=== PATIENT | female | born 1955 | race Caucasian/White ===

== ENCOUNTER → 2017-08-14 | Outpatient (CLI) | payer OTHER ==
--- NOTE | 2017-08-14 14:38 | REP ---
BILATERAL MAMMOGRAM: Bilateral mammography is performed in the MLO and CC projections and compared to prior studies most recent of which is 11/22/2011. Moderate fibroglandular tissue is seen bilaterally. There is a questionable 5 mm nodule on the right MLO view superiorly. I see no other evidence of mass. No clustered microcalcifications are seen. IMPRESSION: ACR 0 incomplete. Possible 5 mm nodule upper right breast only seen on the MLO view. It is not seen on the CC or ML views. Recommend spot compression view right breast in the MLO projection as well as an axillary CC view of the right breast. Further views and ultrasound may also be necessary. BI-RADS/ACR category 0 mammogram, incomplete. Additional imaging and/or prior images are needed before a final assessment can be assigned. This mammogram was interpreted with the aid of an FDA-approved computer-aided detection system. The patient states that she/he has not had a clinical breast exam in over a year. The patient letter being requested is M0. Signed by Christiano Roberson MD 08/14/2017 05:06 P
== END ==
LOC: M RAD 12:38
PROVIDERS: ATTEND Family Medicine
DX: Z12.31 Encounter for screening mammogram for malignant neoplasm of breast (principal); Z12.4 Encounter for screening for malignant neoplasm of cervix

== ENCOUNTER → 2018-02-14 | Outpatient (CLI) | payer OTHER | LOC: M RAD 11:52 | DX: N63.10 Unspecified lump in the right breast, unspecified quadrant (principal) | CPT/HCPCS: 76642 ==

== ENCOUNTER → 2019-06-30 | Outpatient (CLI) | payer OTHER ==
--- NOTE | 2019-06-30 13:47 | REP ---
Clinical: Trauma. Fall. Technique: Internal rotation, external rotation, and Y view of the right shoulder. Findings: Complete acromioclavicular joint separation is appreciated with a gap of approximately 2.0 cm. Glenohumeral joint is intact. No acute fracture. Impression: Acromioclavicular joint separation. Electronically Signed by Aneesh Poe MD 06/30/2019 01:39 P
--- NOTE | 2019-06-30 13:49 | REP ---
Clinical: Trauma. Technique: AP and angled views of the right clavicle. Findings: Complete acromioclavicular joint separation is appreciated with a gap of greater than 2 cm. The clavicle is intact and there is no evidence for acute fracture. Surrounding soft tissues are unremarkable. Glenohumeral joint appears intact. Impression: Acromioclavicular joint separation. Electronically Signed by Aneesh Poe MD 06/30/2019 01:40 P
--- NOTE | 2019-06-30 13:50 | REP ---
Clinical: Trauma. Technique: AP and lateral views of the right humerus. Findings: Humerus appears intact without fracture or dislocation. Acromioclavicular joint separation is appreciated. Impression: No acute humerus fracture or dislocation. Electronically Signed by Aneesh Poe MD 06/30/2019 01:41 P
== END ==
LOC: M LRY 13:17
PROVIDERS: ATTEND Physician Assistant
DX: S43.004A Unspecified dislocation of right shoulder joint, initial encounter (principal); X58.XXXA Exposure to other specified factors, initial encounter; Y92.9 Unspecified place or not applicable
CPT/HCPCS: 73000; 73030; 73060; G0463